=== PATIENT | female | born 1990 | race Caucasian/White ===

== ENCOUNTER 2022-02-13 09:34 | Outpatient (REF) | payer OTHER, SELFPAY ==
[2022-02-13 11:14] LABS: MANUAL DIFF FLAG NO
[2022-02-13 11:21] LABS: Eosinophils Absolute Auto 0.1 X10*3/uL (0.0-0.4); Eosinophils Percent Auto 2.4 % (0-4); Hematocrit 39.2 % (37.0-47.0); Hemoglobin 12.8 g/dl (12.0-16.0); Imm Gran Abs Auto 0.01 X10*3/uL (0.00-0.03); Imm Gran Pct Auto 0.2 % (0.0-0.4); Lymphocytes Absolute Auto 1.1 X10*3/uL (1.2-4.9); Mean Corpuscular HGB Conc 32.7 g/dl (31.0-35.0); Mean Corpuscular Hemoglobin 28.5 pg (27.0-33.0); Mean Corpuscular Volume 87.3 fL (80.0-98.0); Mean Platelet Volume 11.1 fL (9.4-12.3); Monocytes Absolute Auto 0.5 X10*3/uL (0.1-1.2); Monocytes Percent Auto 7.9 % (2-11); Neutrophils Absolute Auto 4.2 x10*3/uL (2.0-8.3); Neutrophils Percent Auto 71.5 % (45-73); Platelet Count 210 X10*3/uL (160-400); Red Blood Count 4.49 X10*6/uL (4.20-5.50); Red Cell Distribution Width 11.8 % (11.0-16.0); White Blood Count 5.8 X10*3/uL (4.8-10.8)
[2022-02-13 11:25] LABS: Appearance Urine Clear; Color Urine Yellow; Glucose Urine UA Negative (Negative); Leukocyte Esterase Urine Negative (Negative); Nitrite Urine Negative (Negative); Specific Gravity - Urine 1.015 (1.005-1.025); Urine Blood Negative (Negative); Urine Ketones Negative (Negative); Urine Protein Negative (Neg-Trace)
[2022-02-13 11:31] LABS: Bacteria Urine None Seen (None Seen); Hyaline Casts Urine 0-2 /LPF (0-2); RBC Urine 0-2 /HPF (0-2); Squamous Epithelial Cell Urine 0-2 /HPF (0-2); WBC Urine 0-5 /HPF (0-5)
[2022-02-13 11:42] LABS: Alanine Aminotransferase 21 U/L (0-31); Albumin Level 4.3 g/dL (3.5-5.0); Alkaline Phosphatase 94 U/L (39-117); Anion Gap 14 (12-20); Aspartate Amino Transferase 16 U/L (5-31); Bilirubin Total 0.5 mg/dL (0.0-1.0); Blood Urea Nitrogen 13 mg/dL (9-16); Carbon Dioxide 24 mmol/L (22-29); Chloride 106 mmol/L (96-108); Cholesterol 189 mg/dL; Estimated Glomerular Filt Rate > 60; Glucose Fasting 111 mg/dL (60-99); HDL Cholesterol 58 mg/dL; LDL Cholesterol Calculated 119 mg/dl; Potassium 4.4 mmol/L (3.3-5.1); Sodium 140 mmol/L (135-145); Total Protein 6.6 g/dL (6.5-8.0); Triglycerides 61 mg/dL
[2022-02-13 12:05] LABS: TSH reflex Free T4 1.52 uIU/mL (0.32-4.0)
== END 2022-02-13 09:35 | disposition home or self-care (01) ==
LOC: HO.HMGCLDS 09:34
PROVIDERS: PCP Internal Medicine; Visit Provider Internal Medicine
DX: Z00.00 Encounter for general adult medical examination without abnormal findings (principal)
CPT/HCPCS: 36415; 80053; 80061; 81001; 84443; 85025

== ENCOUNTER 2022-11-10 11:54 | Outpatient (REF) | payer OTHER, SELFPAY ==
[2022-11-10 15:01] LABS: MANUAL DIFF FLAG NO
[2022-11-10 15:20] LABS: Eosinophils Absolute Auto 0.2 X10*3/uL (0.0-0.4); Eosinophils Percent Auto 2.8 % (0-4); Hematocrit 39.7 % (37.0-47.0); Hemoglobin 12.6 g/dl (12.0-16.0); Imm Gran Abs Auto 0.02 X10*3/uL (0.00-0.03); Imm Gran Pct Auto 0.3 % (0.0-0.4); Lymphocytes Absolute Auto 1.4 X10*3/uL (1.2-4.9); Lymphocytes Percent Auto 23.1 % (20-40); Mean Corpuscular HGB Conc 31.7 g/dl (31.0-35.0); Mean Corpuscular Hemoglobin 27.5 pg (27.0-33.0); Mean Corpuscular Volume 86.5 fL (80.0-98.0); Mean Platelet Volume 11.1 fL (9.4-12.3); Monocytes Absolute Auto 0.6 X10*3/uL (0.1-1.2); Monocytes Percent Auto 9.3 % (2-11); Neutrophils Absolute Auto 3.9 x10*3/uL (2.0-8.3); Neutrophils Percent Auto 64.5 % (45-73); Platelet Count 217 X10*3/uL (160-400); Red Blood Count 4.59 X10*6/uL (4.20-5.50); Red Cell Distribution Width 12.4 % (11.0-16.0); White Blood Count 6.1 X10*3/uL (4.8-10.8)
[2022-11-10 15:36] LABS: Estimated Average Glucose 94 mg/dL; Hemoglobin A1c % 4.9 %
[2022-11-10 15:42] LABS: Alanine Aminotransferase 16 U/L (0-31); Albumin Level 4.1 g/dL (3.5-5.0); Alkaline Phosphatase 91 U/L (39-117); Anion Gap 14 (12-20); Aspartate Amino Transferase 21 U/L (5-31); Bilirubin Total 0.5 mg/dL (0.0-1.0); Blood Urea Nitrogen 11 mg/dL (9-16); Calcium 9.4 mg/dL (8.4-10.2); Carbon Dioxide 24 mmol/L (22-29); Chloride 106 mmol/L (96-108); Cholesterol 153 mg/dL; Estimated Glomerular Filt Rate > 60; Glucose Fasting 91 mg/dL (60-99); HDL Cholesterol 48 mg/dL; LDL Cholesterol Calculated 80 mg/dl; Potassium 3.7 mmol/L (3.3-5.1); Sodium 140 mmol/L (135-145); Total Protein 6.5 g/dL (6.5-8.0); Triglycerides 128 mg/dL
== END 2022-11-10 11:55 | disposition home or self-care (01) ==
LOC: HO.HMGCLDS 11:54
PROVIDERS: PCP Internal Medicine; Visit Provider Internal Medicine
DX: Z00.00 Encounter for general adult medical examination without abnormal findings (principal); R73.9 Hyperglycemia, unspecified
CPT/HCPCS: 36415; 80053; 80061; 83036; 83880; 85025

== ENCOUNTER → 2022-12-08 12:59 | Outpatient (REF) | payer OTHER, SELFPAY ==
--- NOTE | 2022-12-08 13:01 | CA_ITS ---
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 Study Quality: Fair ECG Rhythm: Bradycardia Conclusions: - Normal study Findings Left Ventricle Normal left ventricular size, thickness, and systolic function. The visually estimated ejection fraction is between 65-70%. Diastolic function is normal for age. Peak GLS is -26.4%, within normal limits. Right Ventricle Normal right ventricular cavity size and systolic function. Atria Both atria are normal in size. There is no evidence of interatrial shunt. Aortic Valve Normal aortic valve structure and function. There is no aortic valve stenosis. There is no aortic valve regurgitation. Mitral Valve Normal mitral valve structure and function. There is trace mitral valve regurgitation. There is no mitral valve stenosis. Pulmonic Valve The pulmonic valve is likely normal. Tricuspid Valve Normal tricuspid valve structure. There is trace tricuspid valve regurgitation. The right ventricular systolic pressure is normal. The right ventricular systolic pressure is 16 mmHg. Normal right atrial pressure. There is no evidence of pulmonary hypertension. Great Vessels All visible segments of the aorta are normal in size. The visualized portions of the pulmonary artery and branches are normal. Venous The inferior vena cava is normal in size and collapses greater than 50% with inspiration. Pericardium/Pleural There is no evidence of pericardial effusion. Measurements 2D Linear Measurements IVSd: 0.87 0.6-0.9/0.6-1.0 cm LVIDd: 4.85 3.9-5.3/4.2-5.9 cm LVIDd Index: 2.84 2.4-3.2/2.2-3.1 cm/m2 LVIDs: 3.13 2.0-3.6 cm LVPWd: 0.84 0.7-1.1 cm LA Diam: 3.60 2.7-3.8/3.0-4.0 cm LAIDs Index: 2.11 1.5-2.3 cm/m2 LV Mass: 174.14 67-162/88-224 g LV Mass Index: 101.84 43-95/49-115 g/m2 LVOT Diam: 1.90 3.0+(-)1.3 cm 2D Systolic Function EF 4C: 73.60 >55% EF 2C: 63.00 >55% EF BiP: 69.40 >55% Mitral Valve MV Pk E: 1.18 MV PK A: 0.58 MV Decel Time: 287.00 E/A: 2.00 E'Lateral: 18.00 E'Medial: 10.20 E/E' Med: 11.60 E/E' Lat: 6.60 PHT: 84.00 MVA PHT: 2.62 Decel Victoria: 4.10 Aortic Valve AoV Pk Boo: 1.42 AoV Mn Boo: 1.01 AoV VTI: 0.36 AoV Pk Grad: 8.00 Aov Mn Grad: 5.00 DAVID Cont.VTI: 2.35 LVOT LVOT Pk Boo: 1.29 LVOT Mn Boo: 0.89 LVOT VTI: 0.30 LVOT Pk Grad: 7.00 LVOT Mn Grad: 4.00 LVOT Diam: 1.90 LVOT Area: 2.84 Diastolic Function MV Pk E: 1.18 MV Pk A: 0.58 E/A: 2.00 E'Medial: 10.20 E/E' Med: 11.60 E' Laterial: 18.00 E/E' Lat: 6.60 Right Ventricle TAPSE (mm): 27.40 TVS' Boo: 11.80 Tricuspid Valve TR Pk Boo: 1.82 TR Pk Grad: 13.00 RA Press: 3.00 RVSP: 16.00 Great Vessels Aorta Sinus of Valsalva: 3.30 2.0-3.5 cm Ao Asc: 2.90 2.1-3.4 cm Pulmonary Valve PV Pk Boo: 0.90 Peak PV Grad: 3.00 Updated in Other Vendor System with Status of Final Raheel Chu MD electronically signed on 12/09/2022 1:09:28 PM with status of Final
== END ==
LOC: HO.CARD 12:59
PROVIDERS: PCP Internal Medicine; Visit Provider Internal Medicine
DX: R60.0 Localized edema (principal); Z82.49 Family history of ischemic heart disease and other diseases of the circulatory system
CPT/HCPCS: 93306; 93356

== ENCOUNTER → 2022-12-08 13:01 | Outpatient (BNV) | payer OTHER, SELFPAY | PROVIDERS: PCP Internal Medicine; Visit Provider Internal Medicine Cardiovascular Disease | DX: R00.1 Bradycardia, unspecified (principal); Z82.49 Family history of ischemic heart disease and other diseases of the circulatory system | CPT/HCPCS: 93306 ==

== ENCOUNTER 2023-03-29 14:15 | Outpatient (AMB) | payer OTHER, SELFPAY ==
--- NOTE | 2023-03-29 14:36 | MHC.PC.OV ---
Vital Signs 03/29/23 14:38 Height 5 ft 2 in Weight 167 lb BMI 30.5 BP 110/76 Blood Pressure Location Lt brachial Position Sitting Pulse 66 Pulse Source Pulse Oximeter Pulse Oximetry (%) 99 Oxygen Delivery Method Room Air Intake Visit Reasons: ER follow up Intake Note: Pt is here today for ER follow up visit. Allergies No Known Allergies Allergy (Verified 03/29/23 14:40) Medication List - Last Reconciled 03/29/23 by Willow Ballard MD No Known Home Meds Tobacco use date assessed: 03/29/23 Dental Screening Dental Screen Date: 03/29/23 Did you have a dental visit in the last 12 months?: Yes Did you have a dental problem in the last 6 months where you did not have access to dental care?: No Was dental information given to patient?: Patient has dentist HPI ER follow up HPI Details Pt c/o 3 weeks of L upper chest discomfort worse at work or at the gym lifting weights. She works at the [employer] 12 hr shift 3 days a week. Patient denies cough fever chills pleurisy exertional chest pain. She was evaluated in the ER with normal EKG and blood work FORMERLY [facility] Family History (Updated 11/10/22 @ 11:20 by TERRELL Perez) Father Hypertension Heart attack Mother Pre-diabetes Maternal Grandfather Thyroid cancer Maternal Aunt Brain cancer Social History Housing: House Patient Tobacco Use Status: Never used Tobacco e-Cigarette/Vaping Use: Never Used Current occupational status: employed Cognitive needs: No Hearing needs: No Vision needs: No Questionnaire Thrive Questionnaire Date Thrive assessed: 11/10/22 RACHEL-7 AMB Questionnaire RACHEL-7 Date RACHEL - 7 assessed: 11/10/22 Source: Developed by Drs. Pedro Silverman, Cony Sanchez, Chele Moore and colleagues, with an educational feuntes from [employer]. Review of Systems Const All systems reviewed & are unremarkable except as noted in HPI and below Reports no additional complaints Eyes Reports no additional complaints ENT Reports no additional complaints Card Reports no additional complaints Resp Reports no additional complaints GI Reports no additional complaints Reports no additional complaints Physical exam (Primary Care) Vital Signs: Last Vital Signs Pulse 66 03/29/23 14:38 BP 110/76 03/29/23 14:38 Pulse Ox 99 03/29/23 14:38 Oxygen Delivery Method Room Air 03/29/23 14:38 BMI result Body Mass Index 30.5 Tobacco/Smoking Status: Tobacco use Status Tobacco use date assessed 03/29/23 03/29/23 14:41 Patient Tobacco Use Status Never used Tobacco 03/29/23 14:41 e-Cigarette/Vaping Use Never Used 03/29/23 14:41 Thrive Assessment: Date of Thrive Assessment Date Thrive assessed 11/10/22 03/29/23 14:41 HENMT Head: Yes normal to inspection Ears: hearing grossly normal bilaterally General nose exam: Normal external nose present Neck Neck: Yes no lymphadenopathy Chest Chest palpation & inspection: normal inspection of the chest and normal palpation of entire chest wall Resp Effort & Inspection: normal respiratory effort Auscultation: clear to auscultation bilaterally Cardio Rhythm: regular rhythm Heart sounds: S1 normal heart sound present and S2 normal heart sound present Assessment and Plan Assessment & Plan (1) Musculoskeletal chest pain: Code(s): R07.89 - Other chest pain Plan: Supportive care discussed with the patient meloxicam as prescribed Medications: New meloxicam 15 mg PO DAILY 10 tabs 0RF meloxicam 15 mg PO DAILY 10 tabs 0RF Coding Level of Care Code Est Pt Level 3 (29767) Diagnoses Musculoskeletal chest pain R07.89
[2023-03-29 14:38] VITALS: BP 110/76; PULSE 66; O2SAT 99; BMI 30.5
== END 2023-03-29 15:13 | disposition home or self-care (01) ==
PROVIDERS: PCP Internal Medicine; Visit Provider Internal Medicine
DX: R07.89 Other chest pain (principal)
CPT/HCPCS: 99213

== ENCOUNTER 2024-03-13 11:42 | Outpatient (REF) | payer OTHER, SELFPAY ==
[2024-03-15 17:08] LABS: HPV mRNA E6/E7 Not Detected (Not Detected)
== END 2024-03-13 11:43 | disposition home or self-care (01) ==
LOC: HO.LAB 11:42
PROVIDERS: PCP Internal Medicine; Visit Provider Internal Medicine
DX: Z00.00 Encounter for general adult medical examination without abnormal findings (principal)
CPT/HCPCS: 81025; 87624; 88175; 96127; 99395

== ENCOUNTER 2024-03-13 11:42 | Outpatient (AMB) | payer OTHER, SELFPAY ==
[2024-03-13 12:04] VITALS: BP 118/70; PULSE 73; O2SAT 98; BMI 29.6
--- NOTE | 2024-03-13 12:04 | A.OFFPC_ITS ---
Vital Signs 03/13/24 12:04 Height 5 ft 2 in Weight 162 lb BMI 29.6 BP 118/70 Blood Pressure Location Rt brachial Position Sitting Pulse 73 Pulse Source Pulse Oximeter Pulse Oximetry (%) 98 Intake Visit Reasons: Annual PE Intake Note: pt is here for annual exam Diamond Assorter Required: No Accompanied by: Self / Same As Patient Allergies No Known Allergies Allergy (Verified 03/13/24 12:04) Medication List - Last Reconciled 03/13/24 by Willow Ballard MD No Known Home Meds Tobacco use date assessed: 03/13/24 Dental Screening Dental Screen Date: 03/13/24 Did you have a dental visit in the last 12 months?: Yes Did you have a dental problem in the last 6 months where you did not have access to dental care?: No Was dental information given to patient?: Patient has dentist HPI Annual PE HPI Details Pt presents for PE. Patient complains of vaginal spotting for the last week. She has been sexually active with same partner for the last 10 years without contraception. [facility] Surgical History No pertinent past surgical history Family History Father Hypertension Heart attack Mother Pre-diabetes Maternal Grandfather Thyroid cancer Maternal Aunt Brain cancer Social History Housing: House Patient Tobacco Use Status: Never used Tobacco e-Cigarette/Vaping Use: Never Used Current occupational status: employed Cognitive needs: No Hearing needs: No Vision needs: No Questionnaire PHQ-9 Over the last 2 weeks, how often have you been bothered by any of the following problems? 1. Little interest or pleasure in doing things: not at all 2. Feeling down, depressed, or hopeless: not at all 3. Trouble falling or staying asleep, or sleeping too much: not at all 4. Feeling tired or having little energy: not at all 5. Poor appetite or overeating: not at all 6. Feeling bad about yourself - or that you are a failure or have let yourself or your family down: not at all 7. Trouble concentrating on things, such as reading the newspaper or watching television: not at all 8. Moving or speaking so slowly that other people could have noticed. Or the opposite - being so fidgety or restless that you have been moving around a lot more than usual: not at all 9. Thoughts that you would be better off or of hurting yourself in some way: not at all Total score: 0 Depression Screening Interpretation: Negative Depression Screening Done: Yes 97094 - PHQ-9 Billing: Yes Source: Developed by Drs. Pedro Silverman, Cony Sanchez, Chele Moore and colleagues, with an educational fuentes from [employer]. Thrive Questionnaire Date Thrive assessed: 03/13/24 I am a: Patient What is your living situation today?: I have a steady place to live Within the past 12 months, did the food you bought not last and you didn't have the money to get more?: Never true Within the past 12 months, did you worry whether your food would run out before you got money to buy more?: Never true Do you have trouble paying for medicines?: No Do you have trouble getting transportation to medical appointments?: No Do you have trouble paying your heating and electricity bill?: No Do you have trouble taking care of your child, family member or friend?: No Do you have trouble with day-to-day activities such as bathing, preparing meals, shopping, managing finances, etc.?: No Are you currently unemployed and looking for a job?: No Are you interested in more education?: No Please select the resources that you would like help with: None Currently or been in a relationship where the following occur: No concerns reported THRIVE Score: 0 AUDIT C Alcohol Use Questionnaire (AUDIT-C) 1. How often do you have a drink containing alcohol?: 2-4 times a month 2. How many drinks containing alcohol do you have on a typical day when you are drinking?: 5 or 6 3. How often do you have six or more drinks on one occasion?: Monthly Total Score: 6 Score Reviewed/Action Taken: Yes RACHEL-7 AMB Questionnaire RACHEL-7 Date RACHEL - 7 assessed: 03/13/24 Feeling nervous, anxious, or on edge: 0 = Not at all Not being able to stop or control worryin = Not at all Worrying too much about different things: 0 = Not at all Trouble relaxin = Not at all Being so restless that it is hard to sit still: 0 = Not at all Becoming easily annoyed or irritable: 0 = Not at all Feeling afraid as if something awful might happen: 0 = Not at all Total RACHEL-7 score (0-4 normal; 5-9 mild; 10-14 moderate; 15-21 severe): 0 Source: Developed by Drs. Pedro Silverman, Cony Sanchez, Chele Moore and colleagues, with an educational fuentes from [employer]. RACHEL-7 Assessment Billing RACHEL-7 Assessment Tool: RACHEL-7 Assessment 90809 Review of Systems Const All systems reviewed & are unremarkable except as noted in HPI and below Eyes Reports no additional complaints Card Reports no additional complaints Resp Reports no additional complaints GI Reports no additional complaints Reports no additional complaints Physical exam (Primary Care) Vital Signs: Last Vital Signs Pulse 73 03/13/24 12:04 BP 118/70 03/13/24 12:04 Pulse Ox 98 03/13/24 12:04 BMI result Body Mass Index 29.6 Tobacco/Smoking Status: Tobacco use Status Tobacco use date assessed 03/13/24 03/13/24 12:05 Patient Tobacco Use Status Never used Tobacco 03/13/24 12:05 e-Cigarette/Vaping Use Never Used 03/13/24 12:05 PHQ-9: PHQ-9 Score PHQ-9: Total score 0 03/13/24 12:05 Depression Screening Interpretation: Negative Thrive Assessment: Date of Thrive Assessment Date Thrive assessed 03/13/24 03/13/24 12:05 Currently or been in a relationship where the following occur: No concerns reported Const General: no acute distress HENMT Head: Yes normal to inspection Ears: hearing grossly normal bilaterally Mouth: Normal oral and palatal mucosa present Eyes General: appearance normal, both eyes and all related structures Neck Neck: Yes no lymphadenopathy and Yes supple Resp Effort & Inspection: normal respiratory effort Auscultation: clear to auscultation bilaterally Cardio Rhythm: regular rhythm Heart sounds: S1 normal heart sound present and S2 normal heart sound present GI Inspection: Yes normal to inspection Palpation (GI): Soft to palpation Percussion: Yes normal to percussion Auscultation: normal bowel sounds Speculum Exam - Vagina: normal appearance of the vagina Speculum Exam - Cervix: normal appearance of the cervix Bimanual exam- vagina & uterus: normal bimanual exam Bimanual Exam- Adnexa, other: normal adnexae Coding Level of Care Code Est Pt Prev Care 18-39y(67571) Diagnoses Annual physical exam Z00.00 Additional Codes RACHEL-7 Assessment Billing - RACHEL-7 Assessment Tool: RACHEL-7 Assessment 20174 ([id number]) Assessment & Plan Assessment & Plan (1) Annual physical exam: Code(s): Z00.00 - Encounter for general adult medical examination without abnormal findings Category: Medical Plan: Well-balanced diet regular physical activity discussed with the patient Pap smear was done today. test will be checked for vaginal spotting. Orders: Orders PAP + HPV E6/E7 Today Z00.00 - Encounter for general adult medical examination without abnormal findings
== END 2024-03-13 12:38 | disposition home or self-care (01) ==
PROVIDERS: PCP Internal Medicine; Visit Provider Internal Medicine
DX: Z00.00 Encounter for general adult medical examination without abnormal findings (principal); N93.9 Abnormal uterine and vaginal bleeding, unspecified

== ENCOUNTER 2025-03-06 10:57 | Outpatient (AMB) | payer OTHER, SELFPAY ==
[2025-03-06 11:06] VITALS: BP 128/86; PULSE 61; RESP 18; TEMP 36.7; O2SAT 96; BMI 31.8
--- NOTE | 2025-03-06 11:06 | A.OFFPC_ITS ---
Vital Signs 03/06/25 11:06 Height 5 ft 2 in Weight 174 lb BMI 31.8 BP 128/86 Blood Pressure Location Lt brachial Position Sitting Respiration 18 Pulse 61 Pulse Source Pulse Oximeter Temp 98.1 F Temp Source Oral Pulse Oximetry (%) 96 Oxygen Delivery Method Room Air Intake Visit Reasons: Anxiety/panic attack-update pcp Intake Note: Pt is here today for a sick visit. Pt c/o anxiety and panic attacks. Pt states that she wakes up couple times at night every night with panic attacks. Allergies No Known Allergies Allergy (Verified 03/06/25 11:10) Medication List - Last Reconciled 03/06/25 by Willow Ballard MD No Known Home Meds Tobacco use date assessed: 03/06/25 Dental Screening Dental Screen Date: 03/06/25 Did you have a dental visit in the last 12 months?: Yes Did you have a dental problem in the last 6 months where you did not have access to dental care?: No Was dental information given to patient?: Patient has dentist HPI Anxiety/panic attack-update pcp HPI Details Pt c/o worsening anxiety and insomnia for 7 months due to stressful event which resolved. Patient has a history of anxiety since high school. She tried multiple SSRIs in the past but only for few months. Patient denies depression or suicide ideation. Patient needs a Pap today. She had a 2 episodes of fresh bright blood per rectum last month after drinking alcohol excessively. She denies rectal or abdominal pain, melena change in bowel habits. [facility] Medical History (Updated 03/06/25 @ 12:05 by Willow Ballard MD) Marijuana use Rectal bleed Anxiety Normal pelvic exam Surgical History No pertinent past surgical history Family History Father Hypertension Heart attack Mother Pre-diabetes Maternal Grandfather Thyroid cancer Maternal Aunt Brain cancer Social History Housing: House Patient Tobacco Use Status: Never used Tobacco e-Cigarette/Vaping Use: Never Used service: No Current occupational status: employed Cognitive needs: No Hearing needs: No Vision needs: No Questionnaire PHQ-9 Over the last 2 weeks, how often have you been bothered by any of the following problems? 1. Little interest or pleasure in doing things: several days 2. Feeling down, depressed, or hopeless: nearly every day 3. Trouble falling or staying asleep, or sleeping too much: nearly every day 4. Feeling tired or having little energy: more than half the days 5. Poor appetite or overeating: more than half the days 6. Feeling bad about yourself - or that you are a failure or have let yourself or your family down: not at all 7. Trouble concentrating on things, such as reading the newspaper or watching television: not at all 8. Moving or speaking so slowly that other people could have noticed. Or the opposite - being so fidgety or restless that you have been moving around a lot more than usual: not at all 9. Thoughts that you would be better off or of hurting yourself in some way: not at all Total score: 11 Depression Screening Interpretation: Positive (Hydroxyzine PRN is prescribed. Mindfulness discussed with the patient. She is not interested in taking SSRI. Counseling was recommended) Depression Screening Follow-up: Existing condition and New Medication prescribed Depression Screening Done: Yes 54627 - PHQ-9 Billing: Yes Source: Developed by Drs. Pedro Silverman, Cony Sanchez, Chele Moore and colleagues, with an educational fuentes from [employer] Thrive Questionnaire Date Thrive assessed: 03/06/25 I am a: Patient What is your living situation today?: I have a steady place to live Within the past 12 months, did the food you bought not last and you didn't have the money to get more?: Never true Within the past 12 months, did you worry whether your food would run out before you got money to buy more?: Never true Do you have trouble paying for medicines?: No Do you have trouble getting transportation to medical appointments?: No Do you have trouble paying your heating and electricity bill?: No Do you have trouble taking care of your child, family member or friend?: No Do you have trouble with day-to-day activities such as bathing, preparing meals, shopping, managing finances, etc.?: No Are you currently unemployed and looking for a job?: No Are you interested in more education?: No Please select the resources that you would like help with: None Currently or been in a relationship where the following occur: I choose not to answer THRIVE Score: 0 AUDIT C Alcohol Use Questionnaire (AUDIT-C) 1. How often do you have a drink containing alcohol?: 2-3 times a week 2. How many drinks containing alcohol do you have on a typical day when you are drinking?: 5 or 6 3. How often do you have six or more drinks on one occasion?: Monthly Total Score: 7 RACHEL-7 AMB Questionnaire RACHEL-7 Date RACHEL - 7 assessed: 03/06/25 Feeling nervous, anxious, or on edge: 3 = Nearly every day Not being able to stop or control worryin = Nearly every day Worrying too much about different things: 0 = Not at all Trouble relaxin = Nearly every day Being so restless that it is hard to sit still: 2 = More than half the days Becoming easily annoyed or irritable: 0 = Not at all Feeling afraid as if something awful might happen: 3 = Nearly every day Total RACHEL-7 score (0-4 normal; 5-9 mild; 10-14 moderate; 15-21 severe): 14 Source: Developed by Drs. Pedro Silverman, Cony Sanchez, Chele Moore and colleagues, with an educational fuentes from [employer] RACHEL-7 Assessment Billing RACHEL-7 Assessment Tool: RACHEL-7 Assessment 88899 Review of Systems Const All systems reviewed & are unremarkable except as noted in HPI and below Eyes Reports no additional complaints ENT Reports no additional complaints Card Reports no additional complaints Resp Reports no additional complaints GI Reports no additional complaints Reports no additional complaints Physical exam (Primary Care) Vital Signs: Last Vital Signs Temp 98.1 F 03/06/25 11:06 Pulse 61 03/06/25 11:06 Resp 18 03/06/25 11:06 BP 128/86 03/06/25 11:06 Pulse Ox 96 03/06/25 11:06 Oxygen Delivery Method Room Air 03/06/25 11:06 BMI result Body Mass Index 31.8 Tobacco/Smoking Status: Tobacco use Status Tobacco use date assessed 03/06/25 03/06/25 11:12 Patient Tobacco Use Status Never used Tobacco 03/06/25 11:12 e-Cigarette/Vaping Use Never Used 03/06/25 11:12 PHQ-9: PHQ-9 Score PHQ-9: Total score 11 03/06/25 11:12 Depression Screening Interpretation: Positive (Hydroxyzine PRN is prescribed. Mindfulness discussed with the patient. She is not interested in taking SSRI. Counseling was recommended) Depression Screening Follow-up: Existing condition and New Medication prescribed Thrive Assessment: Date of Thrive Assessment Date Thrive assessed 03/06/25 03/06/25 11:12 Currently or been in a relationship where the following occur: I choose not to answer Const General: no acute distress HENMT Head: Yes normal to inspection Mouth: Normal oral and palatal mucosa present Eyes General: appearance normal, both eyes and all related structures Neck Neck: Yes no lymphadenopathy and Yes supple Resp Effort & Inspection: normal respiratory effort Cardio Rhythm: regular rhythm Heart sounds: S1 normal heart sound present and S2 normal heart sound present GI Inspection: Yes normal to inspection Palpation (GI): Soft to palpation Percussion: Yes normal to percussion Auscultation: normal bowel sounds Speculum Exam - Vagina: normal appearance of the vagina Speculum Exam - Cervix: normal appearance of the cervix Bimanual exam- vagina & uterus: normal bimanual exam Bimanual Exam- Adnexa, other: normal adnexae Coding Level of Care Code Est Pt Level 4 (82420) Diagnoses Annual physical exam Z00. Anxiety F41.9 Rectal bleed K62.5 Additional Codes RACHEL-7 Assessment Billing - RACHEL-7 Assessment Tool: RACHEL-7 Assessment 03916 ([id number]) PHQ-9 - 52864 - PHQ-9 Billing: Yes ([id number]) Assessment & Plan Assessment & Plan (1) Annual physical exam: Code(s): Z00.00 - Encounter for general adult medical examination without abnormal findings Category: Medical Plan: Pap smear was done, patient will return for fasting blood work (2) Anxiety: Comment: stress management, mindfulness, sleep hygiene discussed, counseling recommended, patient tried multiple SSRIs in the past but took it for up to 4 months, hydroxyzine PRN is prescribed 02/2025 Code(s): F41.9 - Anxiety disorder, unspecified Category: Medical Plan: Regular mindfulness and meditation discussed with the patient. She will try hydroxyzine as needed for anxiety and insomnia was advised not to take it regularly to prevent habit-forming. Counseling was recommended. Patient declined taking antidepressants. She will follow-up in 6 weeks (3) Rectal bleed: Comment: Two episodes in January after drinking alcohol excessively Code(s): K62.5 - Hemorrhage of anus and rectum Category: Medical Plan: check Hemoccult, for any recurrent bleeding patient will be referred for colonoscopy Orders: Orders Complete Blood Count Auto Diff Today F41.9 - Anxiety disorder, unspecified, K62.5 - Hemorrhage of anus and rectum, Z00.00 - Encounter for general adult medical examination without abnormal findings UA w Microscopic Today F41.9 - Anxiety disorder, unspecified, K62.5 - Hemorrhage of anus and rectum, Z00.00 - Encounter for general adult medical examination without abnormal findings Lipid Panel Today F41.9 - Anxiety disorder, unspecified, K62.5 - Hemorrhage of anus and rectum, Z00.00 - Encounter for general adult medical examination without abnormal findings AMB Stool Occult Bld x3 gFOBT Today K62.5 - Hemorrhage of anus and rectum Comprehensive [place]. Panel Fast Today F41.9 - Anxiety disorder, unspecified, K62.5 - Hemorrhage of anus and rectum, Z00.00 - Encounter for general adult medical examination without abnormal findings TSH reflex Free T4 Today F41.9 - Anxiety disorder, unspecified, K62.5 - Hemorrh age of anus and rectum, Z00.00 - Encounter for general adult medical examination without abnormal findings Medications: New hydroxyzine HCl 10 mg PO BEDTIME PRN 30 tabs 0RF anxiety MDD 20 mg
--- OUTSIDE RECORDS SUMMARY | 2025-03-06 13:05 | XMS_ITS | Clinical Summary ---
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 Phone Unavailable Primary Care Provider Unavailabl e Social History Tobacco Use Types Packs/Day Years Used Date Smoking Tobacco: Never Assessed Comments Unknown Sex and Gender Information Value Date Recorded Sex Assigned at Not on file Legal Sex Female 12:18 AM EST Gender Identity Not on file Sexual Orientation Not on file Plan of Treatment Health Maintenance Due Date Last Done Comments DTaP,Tdap,and Td Vaccines (1 - Tdap) 08/11/2010 Hepatitis B Vaccines (1 of 3 - 19+ 3-dose series) 08/11/2010 Cervical Cancer Screening: P ap Smear 08/11/2012 HPV Vaccines (1 - 3-dose SCD M series) 08/11/2018 Depression Screening 05/24/2024 COVID-19 Vaccine ( - 2023-2 5 season) 2025 Influenza Vaccine (#1) 2025 RSV Immunization Adult Patie nts (1 - 1-dose 75+ series) 08/11/2066 HIB Vaccines Aged Out No longer eligi ble based on patient's age to complete this topic Hepatitis A Vaccines Aged Out No long er eligible based on patient's age to complete this topic IPV Vaccines Aged Out No longer eligi ble based on patient's age to complete this topic MMR Vaccines Aged Out No longer eligi ble based on patient's age to complete this topic Meningococcal ACWY Vaccine Aged Out N o longer eligible based on patient's age to complete this topic Meningococcal B Vaccine Aged Out No l onger eligible based on patient's age to complete this topic Pneumococcal Vaccine: Pediat rics (0 to 5 Years) and At-Risk Patients (6 to 49 Years) Aged Out No longer eligible b ased on patient's age to complete this topic RSV Immunization Patients Un cecilia 20 months Aged Out No longer eligible b ased on patient's age to complete this topic Varicella Vaccines Aged Out No longer eligible based on patient's age to complete this topic
--- OUTSIDE RECORDS SUMMARY | 2025-03-06 13:05 | XMS_ITS | Clinical Summary ---
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 Phone Unavailable Primary Care Provider Unavailabl e Medications No known medications Active Problems No known active problems Social History Tobacco Use Types Packs/Day Years Used Date Smoking Tobacco: Never Assessed Sex and Gender Information Value Date Recorded Sex Assigned at Not on file Gender Identity Not on file Sexual Orientation Not on file Last Filed Vital Signs Vital Sign Reading Time Taken Comments Blood Pressure - - Pulse 85 02/14/2020 1:09 PM EDT Temperature - - Respiratory Rate - - Oxygen Saturation 97% 02/14/2020 1:09 PM EDT Inhaled Oxygen Concentration - - Weight - - Height - - Body Mass Index - - Plan of Treatment Health Maintenance Due Date Last Done Comments Hepatitis B Vaccines (1 of 3 - 3-dose series) 1991 Hepatitis C Screening 1991 COVID-19 Vaccine (#1) 02/12/1992 Depression Screening 2003 Preventative Health Evaluation 08/11/2009 DTap / Tdap / Td (1 - Tdap) 08/11/2010 Cervical Cancer Screening (P ap Smear) 08/11/2012 Influenza Vaccine (#1) 2025 Pneumococcal Vaccine Aged Out No long er eligible based on patient's age to complete this topic RSV Ped < 20 months Aged Out No longe r eligible based on patient's age to complete this topic
--- OUTSIDE RECORDS SUMMARY | 2025-03-06 13:06 | XMS_ITS | Patient Health Record ---
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 Phone Nehemias ESPINOZA, Colt Primary Care Provider Unavail able Black, Teresa Unavailable [phone] Reason For Referral No Information Medications Medication SIG (Take, Route, Frequency, Duration) Notes Start Date End Date Status PROzac 40 MG 1 capsule in the mor raphael Orally Once a day 12/08/2013 Active Social History Tobacco Use: Social History Observation Description Date Details (start date - stop date) Never Smoker NA - NA Tobacco Use/Smoking Question Answer Notes Are you a: nonsmoker Additional Findings: Tobacco Non-User Current no n-smoker Alcohol Screen Question Answer Notes Did you have a drink contain ing alcohol in the past year? Yes How often did you have a dri nk containing alcohol in the past year? 2 to 3 times a week (3 points) Points 3 Interpretation Positive Problems Problem Type SNOMED Code ICD Code Onset Dates Problem Status W/U Status Risk Notes Problem Verruca plantaris (89269188) Verruca Plantaris (078.19) Active confirmed Problem Pain in limb (80102431) Pain in Limb (729.5) Active confirmed Problem Hammer toe (830535330) Hammer toe (735.4) Active confirmed Plan Of Treatment Pending Test Test Name Order Date [id number] Destruction, 06-0606/26/2014 [id number] Destruction, 06-0607/24/[id number] Destruction, 06-0601/05/2014 Insurance Providers Payer Name Payer Address Payer Phone Subscriber Number Group Number Insured Name Patient Relationship to Insured Coverage Start Date Coverage End Date [employer] ([facility]) [address] [place] [address] [id number] Vitor Suggs Natural Child - Insured has Financial Responsibility Medical (General) History Surgical History Surgery Date(Month/Year) ear surgery wisdom teeth extraction
--- OUTSIDE RECORDS SUMMARY | 2025-03-06 13:06 | XMS_ITS | Patient Health Record ---
Author Organization [facility] Address [address] [place] [address] Support Name Relationship Address Phone Unavailable Emergency Contact Unknown Unavailabl e Digna Suggs Guarantor Unknown [phone] Reason For Referral No Information Medications Medication SIG (Take, Route, Frequency, Duration) Notes Start Date End Date Status Amoxicillin 875 MG TAKE ONE TAB EVERY 1 2 HOURS FOR 10 DAYS.; Duration: 30 Amoxicillin 875mg Tablet TAKE ONE TAB EVERY 12 HOURS FOR 10 DAYS. #20 (Twenty) tablet(s) 07/29/2012 Active Problems Problem Type SNOMED Code ICD Code Onset Dates Problem Status W/U Status Risk Notes Problem Acute pharyngitis (460409690) Acute pharyngitis (462) [address] [facility] [id number] Plan Of Treatment No Information
== END 2025-03-06 11:58 | disposition home or self-care (01) ==
LOC: HO.HMCC 10:58
PROVIDERS: PCP Internal Medicine; Visit Provider Internal Medicine
DX: Z00.00 Encounter for general adult medical examination without abnormal findings (principal); F41.9 Anxiety disorder, unspecified; K62.5 Hemorrhage of anus and rectum

== ENCOUNTER 2025-03-06 10:57 | Outpatient (REF) | payer OTHER, SELFPAY | END 2025-03-06 10:58 | disposition home or self-care (01) | LOC: HO.LNP 10:57 | PROVIDERS: PCP Internal Medicine; Visit Provider Internal Medicine | DX: Z00.00 Encounter for general adult medical examination without abnormal findings (principal); F41.9 Anxiety disorder, unspecified; G47.00 Insomnia, unspecified; K62.5 Hemorrhage of anus and rectum | CPT/HCPCS: 88175; 96127; 99212 ==